=== PATIENT | female | born 1945 | race Native Hawaiian/Other Pacific Islander ===

== ENCOUNTER 2017-09-15 14:01 | Outpatient (CLI) | payer OTHER ==
[2017-09-15 15:42] LABS: POTASSIUM 3.6 mmol/L (3.6-5.2)
== END 2017-09-15 19:12 | disposition home or self-care (01) ==
LOC: LABW 14:01
PROVIDERS: Specialist
DX: I49.1 Atrial premature depolarization (principal); R94.6 Abnormal results of thyroid function studies
CPT/HCPCS: 36415; 80048; 84436; 84443; 84479

== ENCOUNTER 2017-10-17 08:05 | Outpatient (CLI) | payer OTHER | END 2017-10-17 19:04 | disposition home or self-care (01) | LOC: LABW 08:05 | DX: E78.4 Other hyperlipidemia (principal); Z79.899 Other long term (current) drug therapy; Z51.81 Encounter for therapeutic drug level monitoring | CPT/HCPCS: 36415; 80061; 82306; 84460 ==

== ENCOUNTER 2017-10-27 10:25 | Outpatient (CLI) | payer OTHER, BC ==
[2017-10-27 12:03] LABS: POTASSIUM 4.1 mmol/L (3.6-5.2)
== END 2017-10-27 20:21 | disposition home or self-care (01) ==
LOC: LABW 10:25
DX: Z79.899 Other long term (current) drug therapy (principal); Z51.81 Encounter for therapeutic drug level monitoring; G40.802 Other epilepsy, not intractable, without status epilepticus; R00.1 Bradycardia, unspecified
CPT/HCPCS: 36415; 80048; 80162; 80185; 93005

== ENCOUNTER 2017-10-31 08:48 | Outpatient (CLI) | payer OTHER, BC | END 2017-10-31 22:02 | disposition home or self-care (01) | LOC: LABW 08:48 | DX: Z79.899 Other long term (current) drug therapy (principal); Z51.81 Encounter for therapeutic drug level monitoring | CPT/HCPCS: 36415; 80162 ==

== ENCOUNTER 2018-06-08 10:32 | Outpatient (CLI) | payer OTHER, BC | END 2018-06-08 19:59 | disposition home or self-care (01) | LOC: MAMMO 10:32 | DX: Z12.31 Encounter for screening mammogram for malignant neoplasm of breast (principal) ==

== ENCOUNTER 2019-02-27 06:46 | Emergency (ER) | payer OTHER, BC ==
[~2019-02-27] VITALS: Ht 170.2 cm; Wt 99.8 kg
[2019-02-27 06:48] VITALS: TEMP 97.2
[2019-02-27 09:00] VITALS: BP 156/61
== END 2019-02-27 09:08 | disposition home or self-care (01) ==
LOC: ED 06:46
DX: S09.8XXA Other specified injuries of head, initial encounter (principal); W01.198A Fall on same level from slipping, tripping and stumbling with subsequent striking against other object, initial encounter; Y92.89 Other specified places as the place of occurrence of the external cause
CPT/HCPCS: 99282; 99283

== ENCOUNTER 2019-05-14 08:57 | Outpatient (CLI) | payer OTHER, BC | END 2019-05-14 19:23 | disposition home or self-care (01) | LOC: RAD 08:57 | DX: Z13.820 Encounter for screening for osteoporosis (principal); R09.89 Other specified symptoms and signs involving the circulatory and respiratory systems; Z80.1 Family history of malignant neoplasm of trachea, bronchus and lung; N95.8 Other specified menopausal and perimenopausal disorders ==

== ENCOUNTER 2019-06-24 10:00 | Outpatient (CLI) | payer OTHER, BC ==
[2019-06-24 10:38] LABS: PLATELET COUNT 179 K/uL (152-353)
[2019-06-24 10:53] LABS: POTASSIUM 3.9 mmol/L (3.6-5.2)
== END 2019-06-24 21:30 | disposition home or self-care (01) ==
LOC: LABW 10:00
PROVIDERS: Internal Medicine
DX: Z00.00 Encounter for general adult medical examination without abnormal findings (principal); I10 Essential (primary) hypertension; Z79.899 Other long term (current) drug therapy; E55.9 Vitamin D deficiency, unspecified; G40.909 Epilepsy, unspecified, not intractable, without status epilepticus
CPT/HCPCS: 36415; 80053; 80061; 80185; 81000; 82306; 84439; 84443; 85027; 87077; 87086; 87088; 87186

== ENCOUNTER 2019-07-01 08:29 | Outpatient (CLI) | payer OTHER, BC | END 2019-07-01 22:43 | disposition home or self-care (01) | LOC: MAMMO 08:29 | DX: Z12.31 Encounter for screening mammogram for malignant neoplasm of breast (principal) ==

== ENCOUNTER 2020-07-02 17:15 | Emergency (ER) | payer OTHER, BC ==
[~2020-07-02] VITALS: Ht 170.2 cm; Wt 91.6 kg
[2020-07-02 17:22] VITALS: TEMP 98.3
[2020-07-02 19:51] VITALS: BP 169/72
== END 2020-07-02 19:53 | disposition home or self-care (01) ==
LOC: ED 17:15
PROC: 2W3DX1Z Immobilization of Left Lower Arm using Splint (ICD-10-PCS; principal; 2020-07-02)
DX: S52.532A Colles' fracture of left radius, initial encounter for closed fracture (principal); S52.615A Nondisplaced fracture of left ulna styloid process, initial encounter for closed fracture; S80.211A Abrasion, right knee, initial encounter; W17.2XXA Fall into hole, initial encounter; Y92.096 Garden or yard of other non-institutional residence as the place of occurrence of the external cause
CPT/HCPCS: 99283

== ENCOUNTER 2021-03-09 13:30 | Outpatient (CLI) | payer OTHER, BC | END 2021-03-09 18:00 | disposition home or self-care (01) | LOC: INF 13:30 | PROVIDERS: ATTEND Internal Medicine | DX: Z23 Encounter for immunization (principal) | CPT/HCPCS: 0004A ==

== ENCOUNTER 2022-05-23 16:36 | Outpatient (CLI) | payer OTHER, BC | END 2022-05-23 21:48 | disposition home or self-care (01) | LOC: RAD 16:36 | PROVIDERS: ATTEND Internal Medicine | DX: J42 Unspecified chronic bronchitis (principal) ==

== ENCOUNTER 2022-06-12 09:41 | Outpatient (CLI) | payer OTHER, BC | END 2022-06-12 19:17 | disposition home or self-care (01) | LOC: RAD 09:41 | PROVIDERS: ATTEND Internal Medicine | DX: Z01.818 Encounter for other preprocedural examination (principal) ==

== ENCOUNTER 2022-06-13 08:00 | Outpatient (CLI) | payer OTHER, BC ==
[2022-06-13 08:34] LABS: PLATELET COUNT 136 K/uL (152-353)
[2022-06-13 09:04] LABS: POTASSIUM 3.7 mmol/L (3.6-5.2)
== END 2022-06-13 22:24 | disposition home or self-care (01) ==
LOC: LABW 08:00
PROVIDERS: ATTEND Internal Medicine
DX: I10 Essential (primary) hypertension (principal); G40.909 Epilepsy, unspecified, not intractable, without status epilepticus
CPT/HCPCS: 36415; 80053; 80061; 80185; 81002; 84439; 84443; 85027